=== PATIENT | male | born 1980 | race Caucasian/White ===

== ENCOUNTER 2018-01-04 18:56 | Emergency (ER) | payer OTHER ==
[~2018-01-04] VITALS: Ht 182.9 cm; Wt 88.7 kg
[2018-01-04 19:05] VITALS: TEMP 37.2; Ht 182.9 cm; Wt 88.7 kg
--- NOTE | 2018-01-04 19:41 | DIAGNOSTIC IMAGING REPORT ---
CHEST ONE VIEW PORTABLE CLINICAL HISTORY: Severe hypertension. COMPARISON STUDY: No previous studies for comparison. FINDINGS: Patient is slightly rotated. There is mild elevation of the left hemidiaphragm. Lung volumes are normal. No pneumothorax or pleural effusion is noted. There is no consolidation or evidence for pulmonary edema. Cardiomediastinal silhouette is unremarkable. IMPRESSION: No acute cardiopulmonary findings. Electronically signed by: Anson Hobbs M.D. 01/04/2018 7:40 PM Dictated Date/Time: 01/04/2018 7:39 PM
[2018-01-04 19:42] LABS: BASO % 0.3 %; BASO ABS # 0.03 K/uL (0-0.2); EOS % 1.3 %; EOS ABS # 0.12 K/uL (0-0.5); HEMATOCRIT 49.6 % (42-52); HEMOGLOBIN 17.3 g/dL (14.0-18.0); IG# 0.02 K/uL (0.00-0.02); LYMPH % 17.1 %; LYMPH ABS # 1.56 K/uL (1.2-3.4); MEAN CELL VOLUME 90.3 fL (80-100); MEAN CORPUSCULAR HEMOGLOBIN 31.5 pg (25-34); MEAN CORPUSCULAR HGB CONC 34.9 g/dl (32-36); MEAN PLATELET VOLUME 9.5 fL (7.4-10.4); MONO % 5.5 %; NEUT % 75.6 %; NEUT ABS # 6.89 K/uL (1.4-6.5); PLATELET COUNT 198 K/uL (130-400); RED CELL DISTRIBUTION WIDTH CV 12.9 % (11.5-14.5); RED CELL DISTRIBUTION WIDTH SD 42.2 fL (36.4-46.3); WHITE BLOOD COUNT 9.12 K/uL (4.8-10.8)
[2018-01-04 19:44] VITALS: O2SAT 100
--- NOTE | 2018-01-04 19:52 | EMERGENCY ROOM VISIT NOTE ---
ED Visit Note First contact with patient: 19:12 CHIEF COMPLAINT: Chest tightness, hypertension HISTORY OF PRESENTING ILLNESS: This is a 37-year-old male with no significant past medical history who presents to the emergency department with complaint of chest tightness and hypertension. Patient states that he has been having some episodes of chest tightness off and on for the past week, he describes as tightness and pressure in the center of his chest radiates upward, but does not radiate to his jaw, shoulder, down his arm, or to his back. He states that his chest tightness came on today shortly after lunch, he states that he had spicy chicken and an alcoholic cocktail prior to his symptoms starting. He has had constant pain since about 1 PM. He denies any associated shortness of breath, dizziness or syncope, nausea, vomiting, or palpitations. He denies any history of similar symptoms. He was at the grocery store today and was feeling like his chest tightness was a little worse, he decided to check his blood pressure and noted that it was elevated 176/100, which made him very concerned. He did go to an urgent care to be evaluated and states that he had an EKG which was normal, but they did send him here to be seen. He denies any headaches, blurry vision, double vision, neck pain or stiffness, balance problems, confusion, abdominal pain, changes in bowel or bladder habits, or unusual rash. REVIEW OF SYSTEMS: A complete 10 point review of systems was reviewed with the patient with pertinent positives and negatives as per history of present illness. All else were negative. PAST MEDICAL HISTORY: No significant past medical or surgical history. FAMILY HISTORY: Hypertension, no known history of cardiac disease at a young age. SOCIAL HISTORY: Lives at home. He is a current everyday smoker. He also admits to heavily drinking, averages 7-10 drinks per day. He denies recreational drugs. ALLERGIES: Reviewed in chart, see below. PHYSICAL EXAM: CONSTITUTIONAL: Pleasant and cooperative. No acute distress. Well appearing and well nourished. HEENT: Normocephalic, atraumatic. Pupils equal, round and reactive to light, EOMI. TMs normal. Pharynx normal. NECK: Supple, full active range of motion without discomfort. No cervical adenopathy. RESPIRATORY: Clear to auscultation bilaterally with no wheezing, crackles, rhonchi or stridor. Equal expansion bilaterally. CARDIOVASCULAR: Regular rate and rhythm with no murmurs, rubs or gallops. Normal peripheral perfusion. No edema. GASTROINTESTINAL: Soft, nontender, nondistended. No palpable masses or HSM. Bowel sounds present in all quadrants. MUSCULOSKELETAL: Full range of motion of all joints without discomfort. INTEGUMENTARY: No rash or other significant dermatologic conditions noted. NEUROLOGIC: Alert and oriented X 4 with normal affect. Normal strength and sensation in all 4 extremities. No focal neurologic deficits noted. Normal speech. Normal gait observed. ED COURSE AND MEDICAL DECISION MAKING: CC: Patient presenting with complaint of chest tightness, hypertension DIFFERENTIAL DIAGNOSIS: Includes, but not limited to acute coronary syndrome, pulmonary embolism, aortic dissection, pneumothorax, pericarditis, anxiety, musculoskeletal pain, GERD, gastritis, PUD, costochondritis, pneumonia, benign essential hypertension, hypertensive urgency/emergency, among others. INTERPRETATION OF LABS: No leukocytosis, no anemia, normal platelets, no significant electrolyte abnormalities, normal renal function, elevated T bili, liver enzymes are otherwise normal and normal lipase. Coagulation factors within normal limits. TSH normal limits. Negative troponin. IMAGIN view chest x-ray was reviewed by myself and read by radiologist and shows no acute cardiopulmonary abnormalities by my interpretation. EKG: Shows sinus rhythm with sinus arrhythmia with a rate of 64 bpm, no acute ST or T-wave changes, no ectopy, incomplete right bundle branch block by my interpretation. No previous EKGs available for comparison. MEDICATION RECONCILIATION: I attest that I have personally reviewed the patient 's current medication list. INITIAL VITAL SIGNS REVIEW: I reviewed the patient's initial vital signs and interpret them as follows: T: Afebrile; BP: Markedly hypertensive; HR: Within normal limits; RR: Within normal limits; Pulse Ox: Within normal limits on room air. Blood pressure screening: The patient was found to have an elevated blood pressure and was referred to their primary doctor for recheck and further treatment. SUMMARY: Patient was evaluated at bedside, history and physical exam performed. Patient is alert and oriented, no acute distress, resting calmly in the stretcher. Heart and lung exam are unremarkable. There is no peripheral edema. I have a low suspicion for PE at this time, PERC negative. EKG reviewed at bedside, no acute ischemic changes appreciated. Orders were placed at bedside for labs, UA, chest x-ray to evaluate for cardiopulmonary disease. Patient discussed with Dr. Monzon, who agrees with my assessment and plan. Labs and imaging reviewed as above. The T bili is elevated, but the remaining liver enzymes and lipase are all normal. Patient does not have any epigastric or right upper quadrant tenderness on exam. EKG and troponin are negative after more than 6 hours of constant pain and several days of intermittent symptoms. I have a low suspicion for ACS at this time. Given the patient's history of heavy alcohol consumption, I do question the possibility of gastritis or peptic ulcer disease as the cause of patient's pain. He was given a GI cocktail, with good resolution of his symptoms. Patient reassessed multiple times throughout ED stay, he has remained stable, his blood pressure has been downtrending, and his chest discomfort has resolved. Patient was updated on all results and plan for discharge, encouraged him to keep his appointment to get established with PCP, and to have his blood pressure rechecked. He was also encouraged to discuss referral to a GI specialist if his symptoms persist. I did also recommend to the patient that he start taking an H2 dyana, he was given education regarding this. Patient was strongly urged to reduce his alcohol intake, and was given recommendation for other dietary changes to help improve his symptoms. Patient was also given strict return precautions should his symptoms worsen, he verbalized understanding. Patient was discharged home in stable condition and ambulatory. (Marion Ovalles, MARITZA) First contact with patient: 19:23 (Kelvin Leyva M.D.) Allergies Coded Allergies: Penicillins (Verified Allergy, Unknown, as baby, 01/04/18) Vital Signs Date Time Temp Pulse Resp B/P (MAP) Pulse Ox O2 Delivery O2 Flow Rate FiO2 01/04/18 20:45 74 16 147/104 98 Room Air 01/04/18 19:49 66 01/04/18 19:44 100 Room Air 01/04/18 19:43 75 16 177/114 100 Room Air 01/04/18 19:17 100 Room Air 01/04/18 19:05 37.2 66 18 192/135 97 Room Air (Kelvin Leyva M.D.) Laboratory Results 01/04/18 19:32 Red Blood Count 5.49, Mean Corpuscular Volume 90.3, Mean Corpuscular Hemoglobin 31.5, Mean Corpuscular Hemoglobin Concent 34.9, Mean Platelet Volume 9.5, Neutrophils (%) (Auto) 75.6, Lymphocytes (%) (Auto) 17.1, Monocytes (%) (Auto) 5.5, Eosinophils (%) (Auto) 1.3, Basophils (%) (Auto) 0.3, Neutrophils # (Auto) 6.89, Lymphocytes # (Auto) 1.56, Monocytes # (Auto) 0.50, Eosinophils # (Auto) 0.12, Basophils # (Auto) 0.03 01/04/18 19:32 Test 01/04/18 19:32 01/04/18 19:40 White Blood Count 9.12 K/uL (4.8-10.8) Red Blood Count 5.49 M/uL (4.7-6.1) Hemoglobin 17.3 g/dL (14.0-18.0) Hematocrit 49.6 % (42-52) Mean Corpuscular Volume 90.3 fL (80-100) Mean Corpuscular Hemoglobin 31.5 pg (25-34) Mean Corpuscular Hemoglobin Concent 34.9 g/dl (32-36) Platelet Count 198 K/uL (130-400) Mean Platelet Volume 9.5 fL (7.4-10.4) Neutrophils (%) (Auto) 75.6 % Lymphocytes (%) (Auto) 17.1 % Monocytes (%) (Auto) 5.5 % Eosinophils (%) (Auto) 1.3 % Basophils (%) (Auto) 0.3 % Neutrophils # (Auto) 6.89 K/uL (1.4-6.5) Lymphocytes # (Auto) 1.56 K/uL (1.2-3.4) Monocytes # (Auto) 0.50 K/uL (0.11-0.59) Eosinophils # (Auto) 0.12 K/uL (0-0.5) Basophils # (Auto) 0.03 K/uL (0-0.2) RDW Standard Deviation 42.2 fL (36.4-46.3) RDW Coefficient of Variation 12.9 % (11.5-14.5) Immature Granulocyte % (Auto) 0.2 % Immature Granulocyte # (Auto) 0.02 K/uL (0.00-0.02) Prothrombin Time 10.4 SECONDS (9.0-12.0) Prothromb Time International Ratio 1.0 (0.9-1.1) Activated Partial Thromboplast Time 24.4 SECONDS (21.0-31.0) Partial Thromboplastin Ratio 0.9 Anion Gap 6.0 mmol/L (3-11) Est Creatinine Clear Calc Drug Dose 105.7 ml/min Estimated GFR () 105.6 Estimated GFR (Non- 91.1 BUN/Creatinine Ratio 10.6 (10-20) Calcium Level 9.7 mg/dl (8.5-10.1) Total Bilirubin 1.5 mg/dl (0.2-1) Direct Bilirubin 0.3 mg/dl (0-0.2) Aspartate Amino Transf (AST/SGOT) 27 U/L (15-37) Alanine Aminotransferase (ALT/SGPT) 40 U/L (12-78) Alkaline Phosphatase 57 U/L (45-117) Troponin I < 0.015 ng/ml (0-0.045) Total Protein 8.4 gm/dl (6.4-8.2) Albumin 4.5 gm/dl (3.4-5.0) Lipase 157 U/L (73-393) Thyroid Stimulating Hormone (TSH) 1.060 uIu/ml (0.300-4.500) Urine Color YELLOW Urine Appearance CLEAR (CLEAR) Urine pH 7.5 (4.5-7.5) Urine Specific Matthews 1.006 (1.000-1.030) Urine Protein NEG (NEG) Urine Glucose (UA) NEG (NEG) Urine Ketones NEG (NEG) Urine Occult Blood NEG (NEG) Urine Nitrite NEG (NEG) Urine Bilirubin NEG (NEG) Urine Urobilinogen NEG (NEG) Urine Leukocyte Esterase NEG (NEG) (Kelvin Leyva M.D.) Medications Administered Medications (Trade) Dose Ordered Sig/Sondra Route Start Time Stop Time Status Last Admin Dose Admin Miscellaneous Medication (Gi Cocktail) 24 ml NOW STAT PO 01/04/18 20:51 01/04/18 20:53 DC 01/04/18 20:57 24 ML (Kelvin Leyva M.D.) Departure Information Impression Primary Impression: Chest tightness or pressure Additional Impression: Excessive drinking of alcohol Dispostion Home / Self-Care Condition GOOD Referrals No Doctor, Assigned (PCP) Patient Instructions Alcoholism Get Help, ED Chest Pain Atypical Unkn Cause, ED PUD Vs Gastritis, My [facility] Additional Instructions You have been evaluated and treated in the Emergency Department today for your chest pain and high blood pressure. Laboratory results and imaging studies have ruled out any emergent causes for your symptoms which would warrant admission or surgery. It is suspected that you most likely have a form of gastritis or gastric reflux as the cause of your symptoms. You are at increased risk for peptic ulcer disease given your history of heavy alcohol consumption. It is recommended that you cut back significantly on the amount of alcohol you consume to help avoid health problems associated with alcohol overuse. Start taking an [id number] H2 dyana such as Pepcid (famotidine) or Zantac (ranitidine) 1 tablet daily to help manage your symptoms. Take as directed. Avoid NSAIDs such as aspirin, ibuprofen, Advil, Aleve, naproxen, etc., as these may make your symptoms worse. Avoid fatty foods, highly acidic foods, spicy foods, and beverages like coffee and soda, as these may aggravate her symptoms as well. Drink plenty of water to stay well hydrated. Please follow-up with your Primary Care Provider to recheck your blood pressure and to follow-up on your symptoms. Keep your scheduled appointment. Return to the emergency department for severe worsening pain, shortness of breath or inability to catch your breath, severe nausea/vomiting, vomiting blood or bile, bloody or black stools, fevers > 101, severe dizziness or passing out, or any other concerns. Work Instructions Return To Work: 1 day (Marion Ovalles CRNP) Problem Qualifiers
[2018-01-04 20:09] LABS: ALBUMIN 4.5 gm/dl (3.4-5.0); ALKALINE PHOSPHATASE 57 U/L (45-117); ALT/SGPT 40 U/L (12-78); AST/SGOT 27 U/L (15-37); BLOOD UREA NITROGEN 11 mg/dl (7-18); CALCIUM 9.7 mg/dl (8.5-10.1); CARBON DIOXIDE 28 mmol/L (21-32); CREATININE 1.03 mg/dl (0.60-1.40); GLUCOSE 98 mg/dl (70-99); LIPASE 157 U/L (73-393); POTASSIUM 4.1 mmol/L (3.5-5.1); SODIUM 136 mmol/L (136-145); TOTAL PROTEIN 8.4 gm/dl (6.4-8.2)
[2018-01-04 20:14] LABS: PTT PATIENT 24.4 SECONDS (21.0-31.0)
[2018-01-04 20:45] VITALS: BP 147/104; PULSE 74; O2SAT 98
[2018-01-04] MEDS ORDERED: GI COCKTAIL PO STA (20:51)
[2018-01-04] MEDS ORDERED: ALUMINUM/MAGNESIUM SUSP 30 ML UDC ONE (20:55)
[2018-01-04] MEDS ORDERED: LIDOCAINE HCL 2% VISC SOLN 20 ML UDC ONE (20:55)
== END 2018-01-04 21:10 | disposition home or self-care (01) ==
LOC: C.EDB 18:57 → C.EDC 21:10
DX: R07.89 Other chest pain (principal); R03.0 Elevated blood-pressure reading, without diagnosis of hypertension; F10.10 Alcohol abuse, uncomplicated; F17.200 Nicotine dependence, unspecified, uncomplicated; Z88.0 Allergy status to penicillin; Z82.49 Family history of ischemic heart disease and other diseases of the circulatory system